=== PATIENT | female | born 1960 | race Caucasian/White ===

== ENCOUNTER 2022-11-17 20:11 | Emergency (ER) | payer OTHER, SELFPAY ==
[2022-11-17 20:42] VITALS: BP 116/72; PULSE 61; RESP 16; TEMP 36.6; O2SAT 94; BMI 38.7
--- NOTE | 2022-11-17 20:49 | ED.GENADULT ---
HPI - General Adult General Chief complaint: Back Injury/Pain Stated complaint: Lower back pain Time Seen by Provider: 11/17/22 20:48 History of Present Illness HPI narrative: Patient here with longstanding, chronic back pain being managed in [place] with a spine clinic. Next appointment in a couple weeks. She has had epidurals, injections, MRI , etc. She states the pain started because of the beds in the [facility] that she had to sleep on. Came here to get relief from back pain as she is unable to walk and was assisted out of the car in triage. Interested in a shot of toradol. Notified patient we do not have after hour surgeons for this problem or neurologists here at [facility] which was disappointing for her to hear . 62-year-old woman presenting to the emergency department with worsening back pain. More specifically left leg radicular pain and then she indicates an area of pain directly below her left SI joint. Difficult history to obtain. She describes her entire left leg as being numb and in pain and all of this has escalated since hospitalization 6 weeks ago after on accidental overdose. Underlying history of fibromyalgia and chronic right leg pain, I think knee specifically, this was after a fall a long time ago she says. Had been prescribed gabapentin which she did not take excessively but has taken too much Aleve in the past. She admits to obtaining some liquid morphine outside of a prescription and accidentally took too much prompting admission to ICU/hospital. Now with new pain as noted above. She has had MRI of her head with concern of potential stroke causing this left leg symptoms she says she has had MRI of the back. She has had what sounds like EMG testing and has been seeing a chiropractor. She has also received an epidural which did nothing she says. Plan was for 2 more epidurals but she does not think she is going to do that. This new or pain in her left upper buttock area is increasing and now having some pain in her right hip as well. Fever. No rashes. No new falls. Feeling a little bit better now after for 5 hours ago taking ibuprofen and acetaminophen but says it still terrible pain. Related Data Home Medications Medication Instructions Recorded Confirmed atenolol 25 mg tablet 25 mg PO DAILY 11/17/22 11/17/22 gabapentin 300 mg capsule 300 mg PO DAILY 11/17/22 11/17/22 gemfibrozil 600 mg tablet 600 mg PO DAILY 11/17/22 11/17/22 hydrochlorothiazide 12.5 mg capsule 12.5 mg PO DAILY 11/17/22 11/17/22 pramipexole 0.125 mg tablet 0.125 mg PO QHS 11/17/22 11/17/22 (Mirapex) Allergies Allergy/AdvReac Type Severity Reaction Status Date / Time atorvastatin Allergy Intermediate Verified 11/17/22 20:40 lisinopril Allergy Intermediate Uncoded 11/17/22 20:40 Review of Systems Status of ROS: Reports: 6 or more systems reviewed and unremarkable except as noted in History and below [facility] Social History Non-prescribed substance use: denies use Exam Narrative: Exam Narrative: Groaning and discomfort on way back to the room after using the restroom. I catch up with her. In a wheelchair wheel Lynsey significant other. Large woman. Pleasant. Animated. Skin is warm and dry. Well muscled lower extremities. Subjective numbness in the left. She has somewhat deep pain she says to palpation below the left SI joint but does have some discomfort with palpation more reproducible within the left SI joint and she notes how she felt it crack as I pushed there. Also has pain in the right greater trochanter. No midline back pain. Const: Vital Signs, click to edit/add: Vital Signs - 24 hr 11/17/22 20:42 Temperature 97.9 F Pulse Rate [Right Pulse Oximeter] 61 Respiratory Rate 16 Blood Pressure [Le ft Upper Arm] 116/72 Pulse Oximetry 94 Oxygen Delivery Me thod Room Air Documenting provider has reviewed patient's vital signs: yes Course Vital Signs Vital signs: Initial Vital Signs Temperature 97.9 F 11/17/22 20:42 Temperature Source Temporal Artery Scan 11/17/22 20:42 Pulse Rate 61 11/17/22 20:42 Pulse Rhythm Regular 11/17/22 20:42 Respiratory Rate 16 11/17/22 20:42 Blood Pressure 116/72 11/17/22 20:42 Blood Pressure Mean 86 11/17/22 20:42 Blood Pressure Position Sitting 11/17/22 20:42 Pulse Oximetry 94 11/17/22 20:42 Oxygen Delivery Method Room Air 11/17/22 20:42 Vital Signs Temperature 97.9 F 11/17/22 20:42 Pulse Rate 61 11/17/22 20:42 Respiratory Rate 16 11/17/22 20:42 Blood Pressure 116/72 11/17/22 20:42 Pulse Oximetry 94 11/17/22 20:42 Oxygen Delivery Method Room Air 11/17/22 20:42 Temperature 97.9 F 11/17/22 20:42 Pulse Rate 61 11/17/22 20:42 Respiratory Rate 16 11/17/22 20:42 Blood Pressure 116/72 11/17/22 20:42 Pulse Oximetry 94 11/17/22 20:42 Oxygen Delivery Method Room Air 11/17/22 20:42 Medical Decision Making MDM Narrative Medical decision making narrative: It would seem to me that a period of immobility might resulting in some sacroiliac joint pain and with this dysfunction on the left side of her leg and SI joint leading to greater trochanteric bursitis on the right or IT band dysfunction. Sounds as though she has had a rather extensive evaluation regarding her left leg symptoms otherwise. I can offer temporary relief of pain. Counseled that would need to follow up with primary care doctor particularly for continued pain management. Is anticipating being seen mid-month by [facility] [place]. With apparently significant pain, effort to get ahead of this pain, is given injection of hydromorphone and ketorolac. Lidocaine patch also placed. On reassessment little improved but still with good deal of pain. Trial then with 2 tablets of Percocet. Also prednisone since describing these radicular symptoms which might be discogenic. Still with pain but further improved. Appears to be tolerating opiate well at least with regard to sedation. Ambulatory. Do see patient discharge plan Discharge Plan Discharge Clinical Impression: Left lumbar radiculopathy Patient Disposition: Home, Self-Care Condition: Stable Additional Instructions: You might try icing your low back in the area where it hurts. If you feel heat is more effective, I think that is fine too. Might alternate between the 2. If you going to be taking ibuprofen or naproxen regularly, better idea to take it with a little food or may be a proton pump inhibitor like omeprazole, taking that daily. Can take up to 800 mg of ibuprofen per dose and up to 1000 mg of acetaminophen per dose. Keep in mind that each tablet of [place] contains 325 mg of acetaminophen. Alternative to the ibuprofen which may also be combined with the acetaminophen, is naproxen with which you are familiar. Can take up to 500 mg of naproxen 2 times daily. Do not take naproxen ibuprofen at the same dosing. For further pain management, do call tomorrow to make an appointment with whoever would function as your primary care provider in lieu of this upcoming Pain Clinic appointment on the of this month. See stretches/exercises for sacroiliac dysfunction as this might be occurring as well. At a minimum it gives you something to do :) Also information on iliotibial band syndrome as I think that is starting up on your right side/hip perhaps. Also prescribed is prednisone and hydroxyzine. Remember that opiates are sedating and you should take care with them. If you take [place] might combine this with hydroxyzine which can augment the pain relieving effect. Take the prednisone as 60 mg daily for 2 days then 40 mg daily for 4 days then 20 mg daily for 3 days. Prescriptions: No Action gemfibrozil 600 mg tablet 600 mg PO DAILY gabapentin 300 mg capsule 300 mg PO DAILY atenolol 25 mg tablet 25 mg PO DAILY pramipexole [Mirapex] 0.125 mg tablet 0.125 mg PO QHS hydrochlorothiazide 12.5 mg capsule 12.5 mg PO DAILY Follow Up/Referrals: Provider,Not a Local [Primary Care Provider] - Stand Alone Forms: [employer] Info Instructions
[2022-11-17] MEDS: HYDROmorphone 0.5 mg/0.5 ml inj IM (21:28)
[2022-11-17] MEDS: KETOROLAC 30 MG/ML inj 45 MG IM (21:29)
[2022-11-17] MEDS: LIDOCAINE 5% PATCH 1 PATCH TRANSDERMA (21:30)
[2022-11-17] MEDS: OxyCODONE/APAP 5-325 TABLET 2 TAB PO (22:37)
[2022-11-17] MEDS: predniSONE 20 MG TABLET 60 MG PO (22:37)
== END 2022-11-18 01:01 | disposition home or self-care (01) ==
PROVIDERS: Emergency Provider Family Medicine
DX: M54.16 Radiculopathy, lumbar region (principal)
CPT/HCPCS: 96372; 99283; 99284; A9270; J1170; J1885; J7512